=== PATIENT | female | born 1995 | race American Indian/Alaskan Native ===

== ENCOUNTER 2017-11-06 09:59 | Emergency (ER) | payer SELFPAY ==
[2017-11-06 10:06] VITALS: BP 123/75
--- NOTE | 2017-11-06 10:58 | Emergency Department Report ---
ED Rash HPI - HPI Chief Complaint: Skin Rash Stated Complaint: VAG PAIN Time Seen by Provider: 11/06/17 10:39 Duration: one week Location: Other (pubic area) Suspected Cause: Medication (Segovia cream) Rash Symptoms: Yes Itching, No Facial Swelling, No Tongue/Oral Swelling, No Breathing Difficulties, No Choking Sensation, No Wheezing/Dyspnea, No Peeling, No Blistering (blistering to pubic area), No Fever, No Lightheaded, No Malaise, No Myalgias Other History: Assisted 22-year-old -Greek female Presents with a rash to pubic area from using Segovia one week ago. Patient states originally she had a few small bumps to pubic area after applying segovia to area. She thought the rash would improve but no improvement of symptoms. 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 Patient states she used body wash 2 days ago while taking a shower and bumps increased with irritation to the area and redness. Patient states symptoms are worse and thought she would just come in for evaluation. Patient denies shortness of breath, drooling, tongue swelling, sore throat, and swelling to the area. ED Review of Systems ROS: Stated complaint: VAG PAIN Other details as noted in HPI Constitutional: denies: chills, fever Respiratory: denies: cough, shortness of breath, wheezing Cardiovascular: denies: chest pain, palpitations Gastrointestinal: denies: abdominal pain, nausea, diarrhea Skin: rash (painful erythematous rash to pubic area). denies: lesions Neurological: denies: headache, weakness, paresthesias Psychiatric: denies: anxiety, depression ED Past Medical Hx - Past Medical History Previous Medical History?: No - Surgical History Past Surgical History?: No - Social History Smoking Status: Never Smoker Substance Use Type: None Rash Exam - Exam General: Vital signs noted. No distress. Alert and acting appropriately. HEENT: No Periorbital Edema, No Conjuctival Injection, No Chemosis, No Perioral Edema, No Tongue Edema, No Uvular Edema, No Compromised Airway, No Drooling Lungs: Yes Good Air Exchange (Normal Breath Sounds), No Wheezes, No Ronchi, No Stridor, No Cough, No Labored Respirations, No Retractions, No Use of Accessory Muscles, No Other Abnormal Lung Sounds Heart: Yes Regular, No Murmur Skin: Yes Maculopapular Rash (erythematous maculopapular rash to mons pubis), Yes Erythema, No Urticarial Rash, No Morbilliform rash, No Bulla(e), No Excoriations, No Weeping, No Tenderness, No Edema, No Encrustations ED Course Vital Signs 11/06/17 10:04 Temperature 98.3 F Pulse Rate 99 H Respiratory 18 Rate Blood Pressure 123/75 O2 Sat by Pulse 99 Oximetry ED Medical Decision Making - Medical Decision Making This is a 22 y.o. Female that presents with painful rash to pubic area x 1 week. Patient examined by me. No distress noted. Vitals stable. Physical assessment susceptible of allergic contact dermatitis. Instructed to use a thin layer of Vaseline to area to help pain or take tylenol or ibuprofen. Discussed plan with patient and agreed to plan. She'll get a follow-up with PCP or CONSTRUCTION EQUIPMENT MECHANIC. Critical care attestation.: If time is entered above; I have spent that time in minutes in the direct care of this critically ill patient, excluding procedure time. ED Disposition Clinical Impression: Vulvar rash Contact dermatitis Qualifiers: Contact dermatitis type: irritant Contact dermatitis trigger: drugs in contact with skin Qualified Code(s): L24.4 - Irritant contact dermatitis due to drugs in contact with skin Disposition: DC-01 TO HOME OR SELFCARE Is pt being admited?: No Does the pt Need Aspirin: No Condition: Stable Instructions: Contact Dermatitis (ED) Additional Instructions: Instructed to clean area with soap and water daily. Allow area to air while home. Apply thin layer of Vaseline to area for pain. Follow-up with primary care provider or CONSTRUCTION EQUIPMENT MECHANIC if symptoms are not improving as discussed. Referrals: [facility] [place] [Outside] - 3-5 Days [facility] [Outside] - 3-5 Days [facility] [Provider Group] - 3-5 Days Time of Disposition: 11:10 Print Language: HUNGARIAN
== END 2017-11-06 11:24 | disposition home or self-care (01) ==
LOC: ED 09:59
DX: L24.4 Irritant contact dermatitis due to drugs in contact with skin (principal)
CPT/HCPCS: 99282

== ENCOUNTER 2018-04-11 15:35 | Emergency (ER) | payer OTHER ==
--- NOTE | 2018-04-11 18:36 | Emergency Department Report ---
ED Recheck HPI - General Chief Complaint: Medical Clearance Stated Complaint: CLEARANCE FOR WORK Time Seen by Provider: 04/11/18 18:26 Source: patient Mode of arrival: Ambulatory Limitations: No Limitations - History of Present Illness Initial Comments: PT IS A 23 YO AA FEMALE WHO COMES TO ER W NO MED COMPLAINTS. SHE IS HERE TO HAVE US FILL OUT HER MED LEAVE PAPERS TO RETURN HER TO WORK. SHE WORKS AT [email or web address]. SHE STATES SHE WAS SEEN 03-15 AND MD TOOK HER OUT OF WORK ON MED LEAVE. 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 IN REVIEW OF DR NINO NOTES THERE IS NO INDICATION OF LT MEDICAL LEAVE APPROVAL I'VE EXPLAINED THIS TO PT THEN BECOMES VERY ANGRY SHE WAS DX WITH FOLLICULITIS- WITH A BOIL ON HER VAGINAL AREA THE PAPER WORK THAT THE PT HAS THE HAND WRITING IS THAT OF THE PATIENTS AND IT INCLUDES RESTRICTIONS ETC. PT STATES SHE DID IN FACT COMPLETE THE PAPERS. PT STATED SHE NEVER FOLLOWED UP WITH [facility] SHE WENT TO WORK ON 03-23 AND WAS SENT HOME BECAUSE THE RETURN TO WORK DOCUMENTS WERE NOT SIGNED SHE COMES IN TODAY 04-11 TO HAVE US FILL OUT THE PAPERS. SHE STATED IT TOOK HER THAT LONG TO GET THE PAPERS. I EXPLAINED TO PT THAT [facility] WOULD RETURN HER NOT THE ER- THAT THIS IS NOT SOMETHING THAT THE ER DOES. WE WILL GIVE OUT A MAX OF 3 DAYS, WE DO NOT DO ASL INTERPRETER RESTRICTIONS OR PAPER WORK. PT WAS REFERRED TO [facility] FOR RELEASE PT LEFT ANGRY AND YELLING- STATING OUR TRIAGE STAFF ARE INCOMPETENT AND SHOULD HAVE TOLD HER THIS 3 HOURS AGO. MD Complaint: other Symptoms Since Prior Visit: no new symptoms Context: other - Related Data Previous Rx's Medication Instructions Recorded Last Taken Type Sulfamethoxazole/Trimethoprim 1 each PO BID 7 Days #14 tablet 03/15/18 Unknown Rx [Bactrim DS TAB] traMADol [Ultram 50 MG tab] 50 mg PO Q6HR PRN #15 tablet 03/15/18 Unknown Rx Ibuprofen [Motrin] 800 mg PO Q8HR PRN #20 tablet 03/31/18 Unknown Rx methOCARBAMOL [Robaxin TAB] 500 mg PO Q6H PRN #15 tablet 03/31/18 Unknown Rx traMADol [Ultram] 50 mg PO Q6HR PRN #10 tablet 03/31/18 Unknown Rx Allergies Allergy/AdvReac Type Severity Reaction Status Date / Time No Known Allergies Allergy Verified 03/15/18 15:25 ED Review of Systems ROS: Stated complaint: CLEARANCE FOR WORK Other details as noted in HPI Comment: NO MED COMPLAINTS ED Past Medical Hx - Past Medical History Previous Medical History?: No - Surgical History Past Surgical History?: No - Social History Smoking Status: Never Smoker Substance Use Type: None - Medications Home Medications: Home Medications Medication Instructions Recorded Confirmed Last Taken Type Sulfamethoxazole/Trimethoprim 1 each PO BID 7 Days #14 tablet 03/15/18 Unknown Rx [Bactrim DS TAB] traMADol [Ultram 50 MG tab] 50 mg PO Q6HR PRN #15 tablet 03/15/18 Unknown Rx Ibuprofen [Motrin] 800 mg PO Q8HR PRN #20 tablet 03/31/18 Unknown Rx methOCARBAMOL [Robaxin TAB] 500 mg PO Q6H PRN #15 tablet 03/31/18 Unknown Rx traMADol [Ultram] 50 mg PO Q6HR PRN #10 tablet 03/31/18 Unknown Rx ED Physical Exam - General Limitations: No Limitations General appearance: alert - Head Head exam: Present: atraumatic - Eye Eye exam: Present: normal appearance Pupils: Present: normal accommodation - ENT ENT exam: Present: normal exam - Neck Neck exam: Present: normal inspection - Respiratory Respiratory exam: Present: normal lung sounds bilaterally ED Course Vital Signs 04/11/18 16:04 Temperature 98 F Pulse Rate 70 Respiratory 18 Rate Blood Pressure 112/61 O2 Sat by Pulse 100 Oximetry ED Recheck MDM - Core Measures Measure Exclusions: not indicated - Medical Decision Making REQUEST TO FILL OUT ASL INTERPRETER MED LEAVE PAPER WORK OUT. Critical care attestation.: If time is entered above; I have spent that time in minutes in the direct care of this critically ill patient, excluding procedure time. ED Disposition Clinical Impression: Wellness examination Disposition: DC-01 TO HOME OR SELFCARE Is pt being admited?: No Does the pt Need Aspirin: No Condition: Stable Additional Instructions: DR NINO ASKED YOU TO FOLLOW UP WITH [facility] CARE SEE BELOW THEY MAY BE ABLE TO ASSIST YOU Referrals: PRIMARY CARE, [Primary Care Provider] - 3-5 Days [facility] [Outside] - 3-5 Days Time of Disposition: 18:35
== END 2018-04-11 18:59 | disposition home or self-care (01) ==
LOC: ED 15:35
DX: Z00.00 Encounter for general adult medical examination without abnormal findings (principal)
CPT/HCPCS: 99282